=== PATIENT | female | born 1940 | race Caucasian/White ===

== ENCOUNTER → 2016-12-11 | Outpatient (CLI) | payer MEDICARE, BC ==
[~2016-12-11] MED LIST: AMLODIPINE BESYL5 MG PO; ARICEPT5 MG PO; ASPERCREME 1035.4 GM TP; ASPIR 8181 M1 PO; CALCIUM 600 +1 EA12 PO; DIOVAN HCT 81 TABLET PO; FLONASE16 G1 BOTH NARES; HYDROCHLOROTH12.5 M3 PO; K-DUR10 MEQ PO; LIPITOR40 MG PO; LOPRESSOR50 MG PO; NITROSTAT0.4 MG SL; PLAVIX75 MG PO; PRILOSEC20 MG PO; PROTONIX40 MG PO; TOPROL XL50 MG PO; TRENTAL400 MG PO; TUMS500 MG PO; XARELTO20 MG PO
== END | disposition home or self-care (01) ==
LOC: CDC 12:01
DX: I25.2 Old myocardial infarction (principal); R94.31 Abnormal electrocardiogram [ECG] [EKG]
CPT/HCPCS: 93000